=== PATIENT | female | born 1990 | race Caucasian/White ===

== ENCOUNTER 2020-07-31 06:18 | Emergency (ER) | payer OTHER, SELFPAY ==
[2020-07-31 06:23] VITALS: BP 125/78; PULSE 14; RESP 16; TEMP 36.1; O2SAT 99
--- NOTE | 2020-07-31 06:43 | ED.EYEPROB ---
HPI - Eye Problem General Chief complaint: Eye Problems Stated complaint: right eye injury Time Seen by Provider: 07/31/20 06:31 History of Present Illness HPI Narrative: Patient is a 30-year-old female that presents emerged from with chief complaint of right eye pain. The patient states that her dog scratched her eye this morning and has had pain in her eye since then the patient reports that its difficult to open her eye due to the pain states that it is improved whenever she keeps her eyelid shut and states that she had no changes in her vision. Related Data Allergies Allergy/AdvReac Type Severity Reaction Status Date / Time No Known Allergies Allergy Verified 02/21/16 14:09 Review of Systems Review of Systems: Narrative: A 10 system review of systems was completed on the patient and is negative except for what is stated in the HPI. Nursing and ancillary documentation was reviewed. [facility] Social History Social History Smoking status: Never smoker Alcohol intake: current Comments Patient reports no significant past medical history Exam Narrative: Exam Narrative: GENERAL: Well-appearing, well-nourished, and in no acute distress. HEAD: Normocephalic, atraumatic. EYES: PERRLA and EOMI. there is a corneal abrasion present at the 1 o'clock position there is no Jas sign ENT: Nares clear, no rhinorrhea or epistaxis. Mucous membranes moist. NECK: Supple. CHEST: Clear to auscultation. No respiratory distress. HEART: Regular rate and rhythm. No murmur heard. Normal peripheral pulses. ABDOMEN: Soft, nontender, nondistended, normal active bowel sounds. EXTREMITIES: Normal range of motion. No edema. SKIN: Warm, dry, no rash. NEURO: No focal deficits. Alert and oriented x3. PSYCH: Normal mood and affect. Course Course Emergency Course: Patient's discomfort was improved with the tetracaine on exam the exam with a UV light and fluorescein showed evidence of uptake at approximately 1 o'clock position patient will be started on topical antibiotics and the patient will be instructed to follow-up with her primary care physician Vital Signs Vital signs: Vital Signs Temperature 36.1 C L 07/31/20 06:23 Pulse Rate 14 L 07/31/20 06:23 Respiratory Rate 16 07/31/20 06:23 Blood Pressure 125/78 07/31/20 06:23 Pulse Oximetry 99 07/31/20 06:23 Temperature 36.1 C L 07/31/20 06:23 Pulse Rate 14 L 07/31/20 06:23 Respiratory Rate 16 07/31/20 06:23 Blood Pressure 125/78 07/31/20 06:23 Pulse Oximetry 99 07/31/20 06:23 Discharge Plan Discharge Clinical Impression: Corneal abrasion Patient Disposition: Home, Self-Care Condition: Stable Instructions: Antibiotic Form, Corneal Abrasion (ED) Additional Instructions: Please use the antibiotic eyedrops every 3 hours while awake. This should be used for 5 to 7 days or until the discomfort has resolved Prescriptions: New sulfacetamide sodium [Bleph-10] 10 % drops 1 drp RIGHTEYE Q3H 7 Days Qty: 5 RF: 0 Follow-up/Referrals: Gibson Najera MD [Primary Care Provider] - Time of Disposition: 06:49
== END 2020-07-31 07:05 | disposition home or self-care (01) ==
PROVIDERS: Emergency Provider Emergency Medicine; PCP Family Medicine
DX: S05.01XA Injury of conjunctiva and corneal abrasion without foreign body, right eye, initial encounter (principal); W54.8XXA Other contact with dog, initial encounter
CPT/HCPCS: 99283; A9270

== ENCOUNTER 2023-12-10 08:37 | Observation (INO) | payer OTHER, SELFPAY ==
[2023-12-10] VITALS (10 sets, daily range): BP systolic 124; BP diastolic 61; PULSE 77–109; O2SAT 98–100; BMI 27.6
[2023-12-10 11:03] LABS: Appearance Urine Clear (Clear); Bacteria Urine None Seen /hpf; Bilirubin Urine Negative (Negative); Blood Urine 1+ (Negative); Color Urine Yellow (Yellow); Glucose Urine UA Negative (Negative); Ketones Urine 1+ mg/dL (Negative); Leukocyte Esterase Ur Negative LEU/UL (Negative); Mucus Urine Present /lpf; Nitrate Urine Negative (Negative); Protein Urine 1+ mg/dL (Negative); Specific Grav Ur 1.016 (1.001-1.035); Squamous Epithelial Cell Urine Occasional /hpf (Few); Urobilinogen Urine 0.2 mg/dL (<2.0); WBC Urine 0-5 /hpf (0-3)
[2023-12-10 11:04] LABS: Add Urine Microscopic? YES
[2023-12-10] MEDS: TERBUTALINE SULFATE 1 MG/ML VIAL 0.25 MG SUB-Q (11:30)
[2023-12-10 12:42] LABS: HIV 1/2 Ab P24 Ag Result Negative (Negative)
--- NOTE | 2023-12-10 13:32 | P.PNOB_ITS ---
OB - Triage/Final Diagnosis Visit Information Comments/Additional reasons for admission: I have assessed the risk for this patient, Nancy Matamoros, and determined that she would benefit from observation care. Evaluation Laboratory results: Laboratory Tests 12/10/23 12/10/23 10:38 11:47 Urine Color Yellow Urine Appearance Clear Urine pH 6.0 Ur Specific [place] 1.016 Urine Protein 1+ H Urine Glucose (UA) Negative Urine Ketones 1+ H Ur Blood (Man) 1+ H Urine Nitrate Negative Urine Bilirubin Negative Urine Urobilinogen 0.2 Ur Leukocyte Esterase Negative Urine RBC 3-5 H Urine WBC 0-5 Ur Squamous Epith Cells Occasional Urine Bacteria None seen Urine Casts 11-20 Urine Mucus Present HIV 1&2 Ab/P24 Ag 4thGn Negative Vital signs: Vital Signs - 24 hr 12/10/23 11:27 12/10/23 11:32 12/10/23 11:37 Pulse Rate Blood Pressure Pulse Oximetry 98 98 98 Oxygen Delivery 12/10/23 11:42 12/10/23 11:47 12/10/23 11:52 Pulse Rate 83 Blood Pressure 124/61 Pulse Oximetry 100 99 100 Oxygen Delivery 12/10/23 11:57 12/10/23 12:02 12/10/23 12:09 Pulse Rate Blood Pressure Pulse Oximetry 100 100 98 Oxygen Delivery 12/10/23 12:14 12/10/23 10:27 Pulse Rate Blood Pressure Pulse Oximetry 100 Oxygen Delivery Room Air Final Diagnosis (1) False labor: Code(s): O47.9 - False labor, unspecified Status: Acute
== END 2023-12-10 12:25 | disposition home or self-care (01) ==
PROVIDERS: Admitting Provider Obstetrics & Gynecology; PCP Internal Medicine; Visit Provider Obstetrics & Gynecology
DX: O47.9 False labor, unspecified (principal)
CPT/HCPCS: 36415; 81001; 86703; 87086; 87088; 96372; G0378; G0379; G0432; J3105

== ENCOUNTER 2023-12-13 08:42 | Inpatient (IN) | payer OTHER, SELFPAY ==
[2023-12-13] VITALS (180 sets, daily range): BP systolic 123–159; BP diastolic 60–112; PULSE 25–159; RESP 18; TEMP 36.6–37.4; O2SAT 89–100; BMI 27.6
[2023-12-13] MEDS: LACTATED RINGERS 1,000 ML 125 ML IV CONT ×3 (09:08→17:16)
[2023-12-13 09:09] LABS: Basophils Percent Auto 0.2 % (0.2-1.2); Eosinophils Absolute Auto 0.1 K/mm3 (0-0.3); Eosinophils Percent Auto 0.7 % (0-4.4); Hematocrit 32.5 % (37.0-47.0); Hemoglobin 10.7 g/dL (12.0-15.0); Immature Granulocyte Absolute 0.11 K/mm3 (0.00-0.031); Immature Granulocyte Percent A 1.1 % (0-0.5); Lymphocytes Absolute Auto 2.12 K/mm3 (0.9-3.2); Lymphocytes Percent Auto 21.9 % (18.3-44.2); Mean Corpuscular HGB Conc 32.9 g/dl (32-36); Mean Corpuscular Hemoglobin 28.6 pg (26-34); Mean Corpuscular Volume 86.9 fl (80-100); Mean Platelet Volume 11.1 fl (7.4-10.4); Monocytes Absolute Auto 0.8 K/mm3 (0.1-0.6); Monocytes Percent Auto 8.5 % (2.6-8.5); Neutrophils Absolute Auto 6.6 K/mm3 (1.3-6.7); Neutrophils Percent Auto 67.6 % (45.5-73.1); Platelet Count Result 255 k/mm3 (150-375); Red Blood Count 3.74 M/mm3 (4.2-5.4); Red Cell Distribution Width 12.5 % (11.5-14.5); White Blood Count 9.7 K/mm3 (4.5-10.0)
--- NOTE | 2023-12-13 09:14 | LDADM ---
This patient, Nancy Matamoros, was admitted to Labor/Delivery/Recovery 106 on 12/13/23 at 08:42. Plans for labor, pain management and were discussed with patient. Patient/family oriented to hospital policies and general routines including ID bracelet, bed and alarms, visiting hours, pain management, procedures, bathroom and other care routines, personal items, smoking policy, room service/diet and guest tray routines, infant security routines, and visiting hours. Patient/Family are encouraged to report perceived risks to care and to ask questions if they do not understand what they are told or what they should do. See OBIX for further documentation.
[2023-12-13] MEDS: AMPICILLIN 2 GM/NS 100 ML 2 GM/100 ML BAG IVPB (09:15)
--- NOTE | 2023-12-13 09:32 | PC.NURSE ---
0932: RN phoned mergers and acquisitions banker OB, Dr. Cardenas, to inform her of patient's arrival grossly ruptured, eneida every 1-4 minutes that patient is rating a 10 out of 10, and patient's cervical exam of /0. OB aware that patient has had a healthy and is a . Orders to admit patient and call when OB is needed.
--- NOTE | 2023-12-13 09:50 | WPDANESEPP ---
Anes - Eval Pre Procedure Procedure: labor epidural Date/Time: 12/13/23 09:50 Preop Diagnosis: labor pain Pre Op Diagnosis: Labor Patient Data Age: 33 Gender: F Height: 1.63 m Weight: 73 kg Last Vital Signs Pulse 90 12/13/23 09:45 BP 156/109 H 12/13/23 09:45 Pulse Ox 89 L 12/13/23 09:45 O2 Del Method Room Air 12/13/23 09:12 Allergies Allergy/AdvReac Type Severity Reaction Status Date / Time No Known Allergies Allergy Verified 12/10/23 09:55 Home Medications Medication Instructions Recorded Confirmed Type vitamin#30 30 mg iron-10 1 cap PO DAILY 09/08/23 12/10/23 History mg iron-folic acid 1 mg-omg3 capsule duloxetine 60 mg capsule,delayed 60 mg PO DAILY #90 caps 09/24/23 12/10/23 Rx release Laboratory Tests 12/13/23 09:03 WBC 9.7 K/mm3 (4.5-10.0) RBC 3.74 L M/mm3 (4.2-5.4) Hgb 10.7 L g/dL (12.0-15.0) Hct 32.5 L % (37.0-47.0) MCV 86.9 fl (80-100) MCH 28.6 pg (26-34) MCHC 32.9 g/dl (32-36) RDW 12.5 % (11.5-14.5) Plt Count 255 k/mm3 (150-375) MPV 11.1 H fl (7.4-10.4) Immature Gran % (Auto) 1.1 H % (0-0.5) Neut % (Auto) 67.6 % (45.5-73.1) Lymph % (Auto) 21.9 % (18.3-44.2) [place] % (Auto) 8.5 % (2.6-8.5) Eos % (Auto) 0.7 % (0-4.4) Baso % (Auto) 0.2 % (0.2-1.2) Lymph # (Auto) 2.12 K/mm3 (0.9-3.2) [place] # (Auto) 0.8 H K/mm3 (0.1-0.6) Eos # (Auto) 0.1 K/mm3 (0-0.3) Baso # (Auto) 0.0 K/mm3 (0.0-0.1) Abs Immat Gran (auto) 0.11 H K/mm3 (0.00-0.031) Absolute Neuts (auto) 6.6 K/mm3 (1.3-6.7) Absolute Nucleated RBC 0.000 K/mm3 (0.0-0.012) Nucleated RBC % 0.0 % (0.0-0.2) RPR Pending HIV 1&2 Ab/P24 Ag 4thGn Pending Blood Type Pending Antibody Screen Pending Patient hx anesthesia problems: none Family hx anesthesia problems: none Results Review: All pre-operative results and documents have been reviewed as part of the pre-operative evaluation. [facility] Past Medical History Medical History Anxiety H/O ulcer disease Major depressive disorder in remission Major depressive disorder with current active episode Family History Family History Other Breast cancer Social History Social History Smoking status: Never smoker Alcohol intake: current Substance use: never Do You Feel Safe in your Home?: Yes Lack of Transportation: No Lack of Food: Never True Current Housing: I Have Housing Concerned About Future Housing: No Difficulty Paying Gas/Electric Bills: No Difficulty Paying for Meds: No Currently Unemployed: No Education: Don't Know Difficulty w/ Childcare or Family Care: No Spiritual care concerns: No Exam Day of Procedure 12/13/23 09:50 Patient weight: normal Heart: regular rate and rhythm Lungs: clear to auscultation and normal air movement Airway: Mallampati scale class II Neurological: alert and oriented
[2023-12-13 10:08] LABS: HIV 1/2 Ab P24 Ag Result Negative (Negative)
[2023-12-13] MEDS: fentaNYL CITRATE INJ (*CRX) 100 MCG/2 ML VIAL 50 MCG IV PUSH (10:21)
[2023-12-13 10:51] LABS: Rapid Plasma Reagin Non-Reactive (NonReactive)
[2023-12-13] MEDS: AMPICILLIN 1 GM/NS 50 ML 1 GM/50 ML BAG IVPB ×2 (14:00→17:16)
[2023-12-13] MEDS: ONDANSETRON INJ 4 MG/2 ML VIAL IV PUSH (17:51)
--- NOTE | 2023-12-13 18:52 | WPDOBADMIT ---
Obstetrics - Admit Note Admission Note: record reviewed. Pertinent additions to the history and/or any subsequent changes in the physical findings that are not consistent with the expected course of the were found. Additions to the history and/or subsequent changes in the physical findings follow. Admitted at 36 2/7 wks with PROM @ about 0730 in labor on arrival. Progressed in natural labor to complete and pushing. No updates given until I called at 1606 when I was informed patient complete and pushing for 45 min with deep variables. Called back by RN pushing with patient at 1812 stating loss of variability between contractions and I told her I was coming in. On my arrival almost . Review of strip after delivery showed 140-150's most of day until around 1400 when random variables, prolonged decels, and acels minimal. Continued to have increasing variables and prolonged decels until delivery. Pushed x 2 contractions after my arrival. See delivery note.
--- NOTE | 2023-12-13 18:58 | PM.OBPRVD ---
OB - Vaginal Delivery Note Procedure Delivery date: 12/13/23 Events: Premature Rupture of Membranes and Other ( labor) Intrapartal Events: Non-Reassuring Status Induction method: None Delivery monitor: External FHT and External Uterine Route of delivery: Laceration Description: Perineal - 2nd Degree and Superficial (right labial and left periurethral) Delivery repair: vicryl (3-0) Specimen: Yes (placenta) Quantitative Blood Loss (ml): 100 Anesthesia type: Epidural Disposition: Floor Complications: No immediate complications [place] Baby Date of : 12/13/23 Weeks of gestation at delivery: 36 (36 2/7 weeks) gender: Male presentation: vertex position: Right Occiput Anterior Placenta delivery description: Spontaneous and Abnormal Configuration (marginal/velementous insertion; small placenta) Cord Vessel Description: 3 Vessels, Nuchal Cord (tight) and Tight score one minute: 1 score five minutes: 8
--- NOTE | 2023-12-13 19:03 | PM.OBDSVD ---
DS: Admitting Diagnosis Discharge Date 12/15/23 Admitting Diagnosis IUP 36 2/7 PROM in PTL DS: Discharge Diagnosis Discharge Diagnosis (1) (spontaneous vaginal delivery): Code(s): O80 - Encounter for full-term uncomplicated delivery Status: Acute (2) 36 weeks gestation of : Code(s): Z3A.36 - 36 weeks gestation of Status: Acute OB - DS: Summary OB Procedures : Ultrasound OB Procedures Intrapartum: Spontaneous Vag Delivery OB Procedures: : None Peripartum Data Delivery Method: Natural Vaginal Laceration Description: Perineal - 2nd Degree and Superficial (right labial and left periurethral) complications: none Status at Discharge Functional status at discharge: independent ambulation Overall status at discharge: patient is progressing back to baseline Time Spent with Patient Time attestation: Total time spent providing and/or coordinating discharge services: DS: Data Data Completed and Pending Labs on day of discharge: Labs from last 24 hours 12/13/23 09:03 WBC 9.7 RBC 3.74 L Hgb 10.7 L Hct 32.5 L MCV 86.9 MCH 28.6 MCHC 32.9 RDW 12.5 Plt Count 255 MPV 11.1 H Immature Gran % (Auto) 1.1 H Neut % (Auto) 67.6 Lymph % (Auto) 21.9 [place] % (Auto) 8.5 Eos % (Auto) 0.7 Baso % (Auto) 0.2 Lymph # (Auto) 2.12 [place] # (Auto) 0.8 H Eos # (Auto) 0.1 Baso # (Auto) 0.0 Abs Immat Gran (auto) 0.11 H Absolute Neuts (auto) 6.6 Absolute Nucleated RBC 0.000 Nucleated RBC % 0.0 RPR Non-reactive HIV 1&2 Ab/P24 Ag 4thGn Negative Blood Type O Positive Antibody Screen Negative Discharge Plan Discharge Attending physician on discharge: Adan Gonzales Consulting providers: Phuong Moreland; Loly Gatica Discharging Clinician: Adan Gonzales Anticipated Discharge Date/Time: 12/15/23 19:04 Patient Disposition: Home, Self-Care Activity: may shower and pelvic rest Diet: regular Discharge Instructions: Call or return if temperature above 100.4? F, increased abdominal pain, increased vaginal bleeding or any new problems. Education: Mom and Baby Guide Given to: Mother Follow-Up: Call your delivering provider's office for an appointment to be seen in: 6 Weeks Mom should come to the [facility] for the follow-up appointment. If you are still in your room #290 then the follow up nurse will visit you there. Appointment Date/Time: December 16, 2023 at 8:00 am What to expect at your follow-up visit: Physical Assessment Call [phone] if you are unable to keep your appointment time. BREAST CARE: * Wear a snug supportive bra. * Bottle Feeding: * May apply ice packs EPISIOTOMY/PERINEAL CARE: * Until bleeding stops, use your yury bottle after urinating * Change your pad frequently throughout the day * You may take sitz baths several times a day (fill your bathtub with warm water and soak for 20 minutes.) Do NOT bathe in the water * No tub baths until seen by your physician - You may shower ACTIVITY: * Rest as much as possible. * Do not exercise or lift anything heavier than your baby (such as laundry or other children.) * Avoid stairs or driving as much as possible. * Do not put anything into the vagina. No douching, tampons, or sexual activity until seen by physician. NOTIFY PHYSICIAN IF YOU HAVE ANY QUESTIONS OR IF ANY OF THE FOLLOWING SYMPTOMS OCCUR: * If your perineum becomes red, swollen, or more painful than what you have experienced in the hospital. * If your vaginal bleeding becomes foul smelling. * If your vaginal bleeding becomes more heavy than a period or if your bleeding changes from pink to bright red. However, you may pass an occasional walnut-sized clot once or twice for the first week . * If you experience a sharp, shooting pain in you calves. * If you discover a hard, reddened area on your breast or if you experience flu
[2023-12-13] MEDS: OXYTOCIN 30 UNITS/NS 500 ML 30 UNITS/500 ML BAG 125 UNITS IV CONT (19:14)
[2023-12-13] MEDS: IBUPROFEN 600 MG TABLET PO (19:49)
[2023-12-13] MEDS: BENZOCAINE 20% AER SPR (*SP) 56 GM CAN 1 SPRAY TOPICAL (20:50)
[2023-12-13] MEDS: WITCH HAZEL 40 PADS 1 PAD TOPICAL (20:50)
[2023-12-13] MEDS: ACETAMINOPHEN 325 MG TABLET 650 MG PO (21:07)
--- NOTE | 2023-12-13 21:17 | OBPPTRN ---
Patient transferred to post room #290 via (wheelchair ). Support person present. Oriented to unit, room, information board, rooming in, admission packet and security measures. Patient verbalizes understanding.
[2023-12-14] VITALS: BP 121/84; PULSE 80; RESP 18; TEMP 36.5; O2SAT 100
[2023-12-14] MEDS: IBUPROFEN 600 MG TABLET PO ×2 (02:54→15:22)
[2023-12-14 04:58] LABS: Hematocrit 24.4 % (37.0-47.0); Hemoglobin 8.2 g/dL (12.0-15.0)
[2023-12-14] MEDS: ACETAMINOPHEN 325 MG TABLET 650 MG PO (05:14)
[2023-12-14] MEDS: POLYSACCHARIDE IRON COMPLEX 150 MG CAPSULE PO ×2 (07:47→15:21)
[2023-12-14] MEDS: DOCUSATE SODIUM 100 MG CAPSULE PO ×2 (07:47→15:21)
[2023-12-14] MEDS: DULoxetine HCL 60 MG CAPSULE.DR PO (07:47)
[2023-12-14 07:56] VITALS: BP 135/89; PULSE 74; RESP 20; TEMP 36.5; O2SAT 96
--- NOTE | 2023-12-14 08:38 | PM.OBPNVD ---
OB - PN: Subj Subjective Date/time seen: 12/14/23 08:38 Patient comments: no complaints and pain well controlled baby status: doing well OB - PN: Obj Data Labs 12/14/23 04:36 Labs: Laboratory Results - last 24 hr 12/13/23 12/14/23 09:03 04:36 WBC 9.7 RBC 3.74 L Hgb 10.7 L 8.2 L Hct 32.5 L 24.4 L MCV 86.9 MCH 28.6 MCHC 32.9 RDW 12.5 Plt Count 255 MPV 11.1 H Immature Gran % (Auto) 1.1 H Neut % (Auto) 67.6 Lymph % (Auto) 21.9 [place] % (Auto) 8.5 Eos % (Auto) 0.7 Baso % (Auto) 0.2 Lymph # (Auto) 2.12 [place] # (Auto) 0.8 H Eos # (Auto) 0.1 Baso # (Auto) 0.0 Abs Immat Gran (auto) 0.11 H Absolute Neuts (auto) 6.6 Absolute Nucleated RBC 0.000 Nucleated RBC % 0.0 RPR Non-reactive HIV 1&2 Ab/P24 Ag 4thGn Negative Blood Type O Positive Antibody Screen Negative OB - PN A/P Plan day: 1 Plan: routine care Time Spent With Patient Time: Total time spent is greater than 50% in coordination of care (as documented) at patient's floor/unit and/or counseling patient: Exam : Bimanual exam- vagina & uterus: other (Uterus firm, nt @U)
--- NOTE | 2023-12-14 14:58 | WPDANLDPN2 ---
Anes-Prog Note L&D Date/Time: 12/14/23 14:58 Comfortable throughout: labor and delivery Neuraxial method: epidural Epidural/Spinal procedure site: clean & non-tender Neuro status: Neuro function grossly intact. Cardiovascular status: normal Respiratory status: normal Airway patency: baseline Mental status: baseline Post-Op hydration status: normal Vital Signs: Last Vital Signs Temp 36.5 C 12/14/23 07:56 Pulse 74 12/14/23 07:56 Resp 20 12/14/23 07:56 BP 135/89 12/14/23 07:56 Pulse Ox 96 12/14/23 07:56 O2 Del Method Room Air 12/13/23 09:12 Pain score (VAS): 0/10 I/O: Intake & Output 12/13/23 12/14/23 12/14/23 23:59 07:59 15:59 Intake Total 900 Output Total 125 Balance 775 Post-procedural complaints: none Patient feedback: Patient satisfied with anesthetic care.
[2023-12-14 20:30] VITALS: BP 132/78; PULSE 72; RESP 18; TEMP 36.9; O2SAT 97
[2023-12-15] MEDS: IBUPROFEN 600 MG TABLET PO ×2 (03:04→11:49)
[2023-12-15 08:00] VITALS: BP 143/85; PULSE 68; RESP 16; TEMP 37.1; O2SAT 100
[2023-12-15] MEDS: POLYSACCHARIDE IRON COMPLEX 150 MG CAPSULE PO ×2 (08:02→17:23)
[2023-12-15] MEDS: DOCUSATE SODIUM 100 MG CAPSULE PO ×2 (08:02→17:23)
[2023-12-15] MEDS: DULoxetine HCL 60 MG CAPSULE.DR PO (11:49)
--- NOTE | 2023-12-15 13:08 | PM.OBPNVD ---
OB - PN: Subj Subjective Date/time seen: 12/15/23 13:08 Narrative: Pain OK. Would like circumcision for son. OB - PN: Obj Data Labs 12/14/23 04:36 OB - PN A/P Plan Comments: A: PPD#2, doing well. P: Reviewed circ. Home to f/u 6 weeks. Exam Psych: Other: AVSS ABD soft, nontender, fundus firm EXT nontender
--- NOTE | 2023-12-15 13:09 | PM.OBDSVD ---
DS: Admitting Diagnosis Discharge Date 12/15/23 Admitting Diagnosis IUP 36 weeks SROM DS: Discharge Diagnosis Discharge Diagnosis (1) (spontaneous vaginal delivery): Code(s): O80 - Encounter for full-term uncomplicated delivery Status: Acute OB - DS: Summary OB Procedures : None OB Procedures Intrapartum: Spontaneous Vag Delivery OB Procedures: : None Peripartum Data Laceration Description: Perineal - 2nd Degree and Superficial (right labial and left periurethral) Time Spent with Patient Time attestation: Total time spent providing and/or coordinating discharge services: DS: Data Data Completed and Pending Pending studies at discharge: Pending at discharge 12/13/23 20:06 Surgical [PTH] Routine Discharge Plan Discharge Attending physician on discharge: Adan Gonzales Discharging Clinician: Adan Gonzales Anticipated Discharge Date/Time: 12/15/23 19:04 Patient Disposition: Home, Self-Care Activity: may shower and pelvic rest Diet: regular Discharge Instructions: Call or return if temperature above 100.4? F, increased abdominal pain, increased vaginal bleeding or any new problems. Stand Alone Forms: General Discharge Information Follow-up/Referrals: Adan Gonzales MD [Physician] - 6 Weeks Discharge Medications: New ibuprofen 600 mg tablet 600 mg PO Q6H PRN (Reason: cramps) Qty: 30 0RF ferrous sulfate 325 mg (65 mg iron) tablet 325 mg PO DAILY Qty: 30 0RF Continued PNV #[id number] 30 mg iron-10 mg iron-1 mg capsule 1 cap PO DAILY duloxetine 60 mg capsule,delayed release(DR/EC) 60 mg PO DAILY Qty: 90 1RF Date of admission: 12/13/23 08:42 Primary Care Provider: David Bustillo Admitting Provider: Adan Gonzales Attending physician on admission: Adan Gonzales Condition: Stable
--- NOTE | 2023-12-15 18:00 | PC.NURSE ---
1800 Patient transferred to a No Care Bed at this time. Discharge paperwork given and any questions were answered.
[2023-12-16 13:45] VITALS: BP 136/79; PULSE 82; RESP 18; TEMP 37; O2SAT 100
== END 2023-12-15 18:00 | disposition home or self-care (01) | DRG 805 ==
LOC: ANHLDR 19:04 → ANHOB2 21:39
PROVIDERS: Admitting Provider Obstetrics & Gynecology Gynecology; PCP Internal Medicine; Visit Provider Obstetrics & Gynecology
DX: O43.123 Velamentous insertion of umbilical cord, third trimester (principal); O60.14X0 Preterm labor third trimester with preterm delivery third trimester, not applicable or unspecified; Z37.0 Single live birth; O75.2 Pyrexia during labor, not elsewhere classified; O76 Abnormality in fetal heart rate and rhythm complicating labor and delivery; O70.1 Second degree perineal laceration during delivery; O69.1XX0 Labor and delivery complicated by cord around neck, with compression, not applicable or unspecified; O99.824 Streptococcus B carrier state complicating childbirth; O69.89X0 Labor and delivery complicated by other cord complications, not applicable or unspecified; Z3A.36 36 weeks gestation of pregnancy
CPT/HCPCS: 36415; 85014; 85018; 85025; 86592; 86703; 86850; 86900; 86901; 88307; A9270; G0432; J0290; J2405; J2590; J2795; J3010; J7120

== ENCOUNTER 2024-10-04 14:55 | Outpatient (CLI) | payer OTHER, SELFPAY ==
--- OUTSIDE RECORDS SUMMARY | 2024-10-04 17:23 | XMS_ITS | Clinical Summary ---
Author Organization [facility] Address [address] [place] [address] Care Team Providers Care Mottler Operator Name Role Phone Unavailable Primary Care Provider Unavailabl e Social History Tobacco Use Types Packs/Day Years Used Date Smoking Tobacco: Never Assessed Comments Unknown Sex and Gender Information Value Date Recorded Sex Assigned at Not on file Legal Sex Female 5:22 PM CDT Gender Identity Not on file Sexual Orientation Not on file Plan of Treatment Health Maintenance Due Date Last Done Comments Cervical Cancer Screening Pa p Smear (Age 30 to 64) Every 3 Years 1992 Annual Physical 1995 Hepatitis C 2010 DTaP, Tdap and Td Vaccines ( 1 - Tdap) 2011 Hepatitis B Vaccines (1 of 3 - 19+ 3-dose series) 2011 Cervical Cancer Screening Pa p with HPV Testing (Age 30 to 64) Every 5 Years 2022 Cervical Cancer Screening with HPV 2022 COVID-19 Vaccine (2023-2 5 season) 2024 Influenza Adult (#1) 2024 HPV Vaccines Aged Out No longer eligi ble based on patient's age to complete this topic Meningococcal B Vaccine Aged Out No l onger eligible based on patient's age to complete this topic Meningococcal Vaccine Aged Out No monique leti eligible based on patient's age to complete this topic Pneumococcal Vaccine: Pediat rics (0 to 5 Years) and At-Risk Patients (6 to 64 Years) Aged Out No longer eligible b ased on patient's age to complete this topic RSV Immunizations Under 20 Months Aged Out No longer eligible based on patient's age to complete this topic
--- OUTSIDE RECORDS SUMMARY | 2024-10-04 17:23 | XMS_ITS | Clinical Summary ---
Author Organization [facility] Care Team Providers Care Metal Model Builder Name Role Phone Unavailable Primary Care Provider Unavailabl e Social History Tobacco Use Types Packs/Day Years Used Date Smoking Tobacco: Never Assessed Comments Unknown Sex and Gender Information Value Date Recorded Sex Assigned at Not on file Legal Sex Female 2:20 PM CDT Gender Identity Not on file Sexual Orientation Not on file Plan of Treatment Health Maintenance Due Date Last Done Comments Hepatitis C Virus (HCV) Screening 1992 Hepatitis B Immunization (1 of 3 - 19+ 3-dose series) 2011 Pap Smear 2013 Cervical Cancer Screening (CCS) 2022 HPV/Cotest 2022 Influenza Immunization (#1) 2024 SARS-COV-2 Immunization ( season) 2024 Respiratory Syncytial Virus (RSV) Immunization (Adult) (1 - 1-dose 75+ series) 2067 DTaP/Tdap/Td Immunization Discontinued 12/01/2015 TdaP Immunization Completed 12/01/2015 Meningococcal Immunization (ACWY) Aged Out No longer eligible based on patient's age to complete this topic Pneumococcal Immunization Combined Aged Out No longer eligible b ased on patient's age to complete this topic Rotavirus Immunization Aged Out No lo nger eligible based on patient's age to complete this topic
[2024-10-04 19:25] LABS: Basophils Absolute Auto 0.1 K/mm3 (0.0-0.1); Basophils Percent Auto 0.5 % (0.2-1.2); Eosinophils Absolute Auto 0.1 K/mm3 (0-0.3); Eosinophils Percent Auto 0.6 % (0-4.4); Immature Granulocyte Absolute 0.04 K/mm3 (0.00-0.031); Immature Granulocyte Percent A 0.4 % (0-0.5); Lymphocytes Absolute Auto 1.77 K/mm3 (0.9-3.2); Lymphocytes Percent Auto 16.5 % (18.3-44.2); Mean Corpuscular HGB Conc 31.7 g/dl (32-36); Mean Corpuscular Hemoglobin 28.1 pg (26-34); Mean Corpuscular Volume 88.7 fl (80-100); Mean Platelet Volume 9.6 fl (7.4-10.4); Monocytes Absolute Auto 1.2 K/mm3 (0.1-0.6); Monocytes Percent Auto 11.1 % (2.6-8.5); Neutrophils Absolute Auto 7.6 K/mm3 (1.3-6.7); Neutrophils Percent Auto 70.9 % (45.5-73.1); Platelet Count Result 322 k/mm3 (150-375); Red Blood Count 4.62 M/mm3 (4.2-5.4); Red Cell Distribution Width 13.4 % (11.5-14.5); White Blood Count 10.7 K/mm3 (4.5-10.0)
[2024-10-04 19:58] LABS: Alanine Aminotransferase 14 U/L (6-35); Albumin Level 4.5 g/dL (3.5-5.1); Alkaline Phosphatase 86 U/L (38-126); Anion Gap 13 mmol/L (4-12); Aspartate Amino Transferase 22 U/L (14-36); Bilirubin,Total 0.6 mg/dL (0.2-1.3); Blood Urea Nitrogen 9 mg/dL (7-17); Calcium 9.7 mg/dL (8.4-10.2); Carbon Dioxide 28 mmol/L (22-30); Chloride 100 mmol/L (98-107); Estimated Glomerular Filt Rate > 60; Glucose 126 mg/dL (65-110); Potassium 4.5 mmol/L (3.4-5.0); Sodium 141 mmol/L (137-145)
== END 2024-10-04 14:56 | disposition home or self-care (01) ==
LOC: ANHGOSHLAB 14:56
PROVIDERS: PCP Internal Medicine; Visit Provider Internal Medicine
DX: D64.9 Anemia, unspecified (principal)
CPT/HCPCS: 36415; 80053; 82728; 85025